=== PATIENT | female | born 1935 | race Two or more races ===

== ENCOUNTER 2017-04-30 23:14 | Inpatient (IN) | payer SELFPAY ==
[~2017-04-30] VITALS: Ht 152.4 cm; Wt 72.4 kg
[2017-05-01] MEDS ORDERED: SODIUM CHLORIDE FLUSH 10ML SYR IVF ONE
[2017-05-01] MEDS ORDERED: SODIUM CHLORIDE 0.9% 1,000ML IVBOLUS ONE
[2017-05-01] MEDS ORDERED: ONDANSETRON 2MG/ML, 2ML IVPush ONE
[2017-05-01] MEDS ORDERED: ONDANSETRON 2MG/ML, 2ML ONE (00:01)
[2017-05-01 00:20] LABS: ASPARTATE AMINO TRANSFERASE 214 U/L (15-37); BLOOD UREA NITROGEN 9 mg/dL (7-18)
[2017-05-01 00:45] LABS: PATH.CAST-FLAG NOT PRESENT; SPERM-FLAG NOT PRESENT; SRC-FLAG NOT PRESENT; XTAL-FLAG NOT PRESENT; YLC-FLAG NOT PRESENT
[2017-05-01 00:49] LABS: HEMATOCRIT 42.6 % (34.6-47.8); HEMOGLOBIN 14.2 g/dL (11.7-16.4); WHITE BLOOD COUNT 8.2 x10^3/uL (3.4-10)
[2017-05-01 01:18] LABS: IS PT STATUS REG ER OR PRE ER? YES
[2017-05-01] MEDS ORDERED: CEFTRIAXONE PMX 1GM/50ML 50 ML IV ONE (02:00)
[2017-05-01] MEDS ORDERED: OMNIPAQUE 350 MG/ML, 100ML BOTTLE ONE (02:14)
[2017-05-01] MEDS ORDERED: CEFTRIAXONE PMX 1GM/50ML 50 ML ONE (02:20)
[2017-05-01] MEDS ORDERED: ENOXAPARIN 40 MG/0.4 ML SQ SCH (02:30)
[2017-05-01] MEDS ORDERED: hydrALAzine 20 MG/ML, 1ML IVPush PRN (02:30)
[2017-05-01] MEDS ORDERED: ONDANSETRON 2MG/ML, 2ML IVPush PRN (02:30)
[2017-05-01] MEDS ORDERED: HYDROmorphone 2 MG/ML, 1ML IVPush PRN (02:30)
[2017-05-01] MEDS ORDERED: HALOPERIDOL 1 MG TABLET PO PRN (02:30)
[2017-05-01] MEDS ORDERED: POTASSIUM CHLORIDE 20 MEQ TAB.ER.PRT PO ONE (03:00)
[2017-05-01 03:27] VITALS: BP 103/61
[2017-05-01 03:30] VITALS: BP 103/61
[2017-05-01] MEDS: SODIUM CHLORIDE 0.9% 1,000 ML IV SCH ×2 (04:15→22:19)
[2017-05-01] MEDS: CEFOXITIN 2 GM in SODIUM CHLORIDE 0.9% 50 ML IV SCH ×2 (05:13→12:22)
[2017-05-01 08:12] VITALS: BP 70/39
[2017-05-01] MEDS: PANTOPRAZOLE 40 MG IV IVPush SCH (08:24)
[2017-05-01] MEDS: INSULIN ASPART 100 UNITS/ML, PEN SQ-INSULIN SCH ×4 (08:25→21:00)
[2017-05-01 08:32] VITALS: BP_SYST 94; BP_DIAS 57; BP_DIAS 85
[2017-05-01 10:02] LABS: BLOOD UREA NITROGEN 9 mg/dL (7-18); WHITE BLOOD COUNT 7.5 x10^3/uL (3.4-10)
[2017-05-01 10:05] LABS: ASPARTATE AMINO TRANSFERASE 136 U/L (15-37)
[2017-05-01 14:36] VITALS: BP_SYST 156; BP_SYST 56; BP_DIAS 39; BP_DIAS 69
[2017-05-01] MEDS: ENOXAPARIN 40 MG/0.4 ML SQ SCH ×2 (16:00→16:32)
[2017-05-01 20:01] VITALS: BP 94/49
[2017-05-01] MEDS: SODIUM CHLORIDE 0.9% IV SCH (20:06)
[2017-05-01] MEDS: CEFOXITIN IV SCH (20:06)
[2017-05-02] MEDS: SODIUM CHLORIDE 0.9% IV SCH ×3 (04:04→22:02)
[2017-05-02] MEDS: CEFOXITIN IV SCH ×3 (04:04→22:02)
[2017-05-02 04:07] VITALS: BP 100/61
[2017-05-02 05:07] LABS: HEMATOCRIT 38.4 % (34.6-47.8); HEMOGLOBIN 12.6 g/dL (11.7-16.4); WHITE BLOOD COUNT 5.5 x10^3/uL (3.4-10)
[2017-05-02 05:08] LABS: BLOOD UREA NITROGEN 12 mg/dL (7-18)
[2017-05-02 05:21] LABS: ASPARTATE AMINO TRANSFERASE 88 U/L (15-37)
[2017-05-02] MEDS: INSULIN ASPART 100 UNITS/ML, PEN SQ-INSULIN SCH ×4 (07:00→22:02)
[2017-05-02 07:15] VITALS: BP 96/54
[2017-05-02] MEDS: PANTOPRAZOLE 40 MG IV IVPush SCH (10:11)
[2017-05-02] MEDS: SODIUM CHLORIDE 0.9% 1,000 ML IV SCH ×2 (10:19→23:40)
[2017-05-02 13:42] VITALS: BP 101/63
[2017-05-02 22:06] VITALS: BP 93/58
[2017-05-02] MEDS ORDERED: ONDANSETRON 2MG/ML, 2ML IVPush PRN (22:30)
[2017-05-02] MEDS ORDERED: HALOPERIDOL 1 MG TABLET PO PRN (22:30)
[2017-05-03 03:34] VITALS: BP 101/62
[2017-05-03 05:21] LABS: HEMATOCRIT 36.1 % (34.6-47.8); HEMOGLOBIN 11.9 g/dL (11.7-16.4); WHITE BLOOD COUNT 4.9 x10^3/uL (3.4-10)
[2017-05-03 05:52] LABS: BLOOD UREA NITROGEN 9 mg/dL (7-18)
[2017-05-03] MEDS: SODIUM CHLORIDE 0.9% IV SCH (06:19)
[2017-05-03] MEDS: CEFOXITIN IV SCH (06:19)
[2017-05-03 06:55] VITALS: BP 114/67
[2017-05-03] MEDS: INSULIN ASPART 100 UNITS/ML, PEN SQ-INSULIN SCH ×4 (07:00→20:35)
[2017-05-03] MEDS: PANTOPRAZOLE 40 MG IV IVPush SCH (10:13)
[2017-05-03] MEDS: SODIUM CHLORIDE 0.9% 1,000 ML IV SCH ×2 (13:00→16:30)
[2017-05-03 13:11] LABS: HEMATOCRIT 38.5 % (34.6-47.8); HEMOGLOBIN 12.6 g/dL (11.7-16.4)
[2017-05-03] MEDS ORDERED: LIDOCAINE-MPF 2% ,5ML ONE ×2 (13:18)
[2017-05-03] MEDS ORDERED: PROPOFOL 10 MG/ML, 20ML ONE (13:18)
[2017-05-03] MEDS ORDERED: ONDANSETRON 2MG/ML, 2ML ONE (13:18)
[2017-05-03] MEDS ORDERED: DEXAMETHASONE 4 MG/ML, 1ML ONE (13:18)
[2017-05-03] MEDS ORDERED: MIDAZOLAM 1 MG/ML, 2ML ONE (13:22)
[2017-05-03] MEDS ORDERED: FENTANYL PF 100 MCG/2ML ONE (13:23)
[2017-05-03 13:40] VITALS: BP 109/55
[2017-05-03] MEDS ORDERED: SUCCINYLCHOLINE 20 MG/ML, 10ML ONE (14:25)
[2017-05-03] MEDS ORDERED: ROCURONIUM 10 MG/ML ONE (14:25)
[2017-05-03 16:20] VITALS: BP 109/61
[2017-05-03] MEDS: LEVOFLOXACIN/PMX 750MG/150ML 150 ML IV SCH (16:25)
[2017-05-03 20:14] VITALS: BP 110/64
[2017-05-04 01:30] VITALS: BP 104/58
[2017-05-04 05:03] LABS: HEMATOCRIT 35.6 % (34.6-47.8); HEMOGLOBIN 11.7 g/dL (11.7-16.4); WHITE BLOOD COUNT 3.3 x10^3/uL (3.4-10)
[2017-05-04 05:16] LABS: BLOOD UREA NITROGEN 11 mg/dL (7-18)
[2017-05-04 06:58] VITALS: BP 100/66
[2017-05-04] MEDS: INSULIN ASPART 100 UNITS/ML, PEN SQ-INSULIN SCH ×4 (07:00→21:00)
[2017-05-04] MEDS: PANTOPRAZOLE 40 MG IV IVPush SCH (08:15)
[2017-05-04] MEDS: SODIUM CHLORIDE 0.9% 1,000 ML IV SCH (08:19)
[2017-05-04 12:37] VITALS: BP 100/57
[2017-05-04] MEDS: LEVOFLOXACIN/PMX 750MG/150ML 150 ML IV SCH (16:37)
[2017-05-04 19:42] VITALS: BP 102/64
[2017-05-05] MEDS: SODIUM CHLORIDE 0.9% 1,000 ML IV SCH ×2 (00:17→12:30)
[2017-05-05 01:17] VITALS: BP 97/62
[2017-05-05 05:49] LABS: BLOOD UREA NITROGEN 9 mg/dL (7-18)
[2017-05-05 06:15] LABS: HEMATOCRIT 36.2 % (34.6-47.8); HEMOGLOBIN 11.9 g/dL (11.7-16.4); WHITE BLOOD COUNT 3.8 x10^3/uL (3.4-10)
[2017-05-05 06:16] LABS: DIFF TOTAL CELLS COUNTED 100 CELL DIFF
[2017-05-05 06:18] LABS: VERIFY COUNTS? YES
[2017-05-05 06:19] LABS: ANISOCYTOSIS 1+
[2017-05-05 06:20] LABS: LARGE PLATELETS 1+
[2017-05-05] MEDS: INSULIN ASPART 100 UNITS/ML, PEN SQ-INSULIN SCH ×4 (07:00→21:00)
[2017-05-05 07:16] VITALS: BP 92/52
[2017-05-05] MEDS: PANTOPRAZOLE 40 MG IV IVPush SCH (08:14)
[2017-05-05 13:07] LABS: BLOOD UREA NITROGEN 8 mg/dL (7-18)
[2017-05-05 13:29] VITALS: BP 112/65
[2017-05-05] MEDS: LEVOFLOXACIN/PMX 750MG/150ML 150 ML IV SCH (16:12)
[2017-05-05 18:32] VITALS: BP 102/60
[2017-05-06] MEDS: SODIUM CHLORIDE 0.9% 1,000 ML IV SCH ×2 (02:49→21:00)
[2017-05-06 03:00] VITALS: BP 101/52
[2017-05-06 05:25] LABS: BLOOD UREA NITROGEN 6 mg/dL (7-18)
[2017-05-06 05:29] LABS: HEMATOCRIT 37.2 % (34.6-47.8); HEMOGLOBIN 12.2 g/dL (11.7-16.4); WHITE BLOOD COUNT 3.9 x10^3/uL (3.4-10)
[2017-05-06] MEDS: INSULIN ASPART 100 UNITS/ML, PEN SQ-INSULIN SCH ×4 (07:00→21:00)
[2017-05-06 07:48] VITALS: BP 104/59
[2017-05-06] MEDS: PANTOPRAZOLE 40 MG IV IVPush SCH (09:16)
[2017-05-06 12:01] VITALS: BP 118/58
[2017-05-06] MEDS ORDERED: BUPIVACAINE/PF 0.5% ONE (14:10)
[2017-05-06] MEDS ORDERED: FENTANYL PF 100 MCG/2ML ONE ×2 (15:32→16:54)
[2017-05-06] MEDS ORDERED: NEOSTIGMINE 1 MG/ML, 10ML ONE (15:44)
[2017-05-06] MEDS ORDERED: GLYCOPYRROLATE 0.2MG/1ML, 5ML ONE (15:44)
[2017-05-06] MEDS ORDERED: ROCURONIUM 10 MG/ML ONE (15:44)
[2017-05-06] MEDS ORDERED: OXYcodone 5 MG/5 ML ORAL.SOL UDC PO PRN (16:30)
[2017-05-06] MEDS ORDERED: HYDROmorphone 1 MG/ML, 1ML IV PRN (16:30)
[2017-05-06] MEDS ORDERED: PROMETHAZINE 25 MG/ML, 1ML IV PRN (16:30)
[2017-05-06] MEDS ORDERED: hydrALAzine 20 MG/ML, 1ML IV PRN (16:30)
[2017-05-06] MEDS ORDERED: DIAZEPAM 5 MG/ML, 2ML IVPush PRN (16:30)
[2017-05-06] MEDS ORDERED: ONDANSETRON 2MG/ML, 2ML IVPush PRN (16:30)
[2017-05-06] MEDS ORDERED: LABETALOL 5MG/ML, 20ML IV PRN (16:30)
[2017-05-06] MEDS ORDERED: OXYcodone 5 MG/5 ML ORAL.SOL UDC ONE (16:55)
[2017-05-06] MEDS: FENTANYL PF 100 MCG/2ML IV PRN ×3 (17:00→17:18)
[2017-05-06] MEDS ORDERED: HYDROmorphone 1 MG/ML, 1ML ONE (17:02)
[2017-05-06] MEDS: LEVOFLOXACIN/PMX 750MG/150ML 150 ML IV SCH (18:16)
[2017-05-06] MEDS: OXYcodone IR 5MG TABLET PO PRN (18:51)
[2017-05-06 19:02] VITALS: BP 116/61
[2017-05-07 01:50] VITALS: BP 117/63
[2017-05-07] MEDS: OXYcodone IR 5MG TABLET PO PRN ×2 (04:49→17:07)
[2017-05-07 05:58] LABS: BLOOD UREA NITROGEN 5 mg/dL (7-18)
[2017-05-07 06:26] LABS: HEMATOCRIT 39.2 % (34.6-47.8)
[2017-05-07] MEDS: INSULIN ASPART 100 UNITS/ML, PEN SQ-INSULIN SCH ×4 (07:00→21:00)
[2017-05-07 07:38] VITALS: BP 103/61
[2017-05-07] MEDS: metFORMIN 500 MG TABLET PO SCH (10:25)
[2017-05-07] MEDS: PANTOPRAZOLE 40 MG IV IVPush SCH (10:26)
[2017-05-07] MEDS: HYDROmorphone 2 MG/ML, 1ML IVPush PRN ×2 (10:59→21:42)
[2017-05-07 13:07] VITALS: BP 100/62
[2017-05-07 18:46] VITALS: BP 107/59
[2017-05-08 05:41] LABS: HEMATOCRIT 38.9 % (34.6-47.8); HEMOGLOBIN 13.2 g/dL (11.7-16.4); WHITE BLOOD COUNT 6.5 x10^3/uL (3.4-10)
[2017-05-08 05:47] LABS: BLOOD UREA NITROGEN 3 mg/dL (7-18)
[2017-05-08 05:57] VITALS: BP 119/67
[2017-05-08] MEDS: OXYcodone IR 5MG TABLET PO PRN ×2 (06:26→12:31)
[2017-05-08] MEDS ORDERED: POTASSIUM CHLORIDE 20 MEQ TAB.ER.PRT PO ONE ×2 (07:30→09:00)
[2017-05-08] MEDS ORDERED: PANTOPROZOLE 40MG TABLET PO SCH (07:30)
[2017-05-08 08:52] VITALS: BP 113/65
[2017-05-08] MEDS: INSULIN ASPART 100 UNITS/ML, PEN SQ-INSULIN SCH ×3 (09:56→16:00)
[2017-05-08] MEDS: metFORMIN 500 MG TABLET PO SCH (10:00)
[2017-05-08] MEDS ORDERED: PNEUMOCOCCAL 23 VACCINE IM-VACC ONE ×2 (13:00→15:30)
[2017-05-08] MEDS ORDERED: FLU VACC QS2017-18 (36MOS+) UP/PF 0.5 ML IM-VACC ONE ×2 (13:00→15:30)
[2017-05-08 14:00] VITALS: BP 120/81
[2017-05-08 16:32] VITALS: BP 111/69
[2017-05-08 16:34] VITALS: BP 111/69
== END 2017-05-08 20:00 | disposition home or self-care (01) | DRG 853 ==
LOC: ED 23:59 → EDIP 05-01 02:28 → 3NE 05-01 03:20
PROVIDERS: ADMIT Internal Medicine; ATTEND Internal Medicine
PROC: 30233R1 Transfusion of Nonautologous Platelets into Peripheral Vein, Percutaneous Approach (ICD-10-PCS; 2017-05-03)
PROC: 0F798ZZ Dilation of Common Bile Duct, Via Natural or Artificial Opening Endoscopic (ICD-10-PCS; 2017-05-03)
PROC: 0FT44ZZ Resection of Gallbladder, Percutaneous Endoscopic Approach (ICD-10-PCS; 2017-05-06)
PROC: 3E0234Z Introduction of Serum, Toxoid and Vaccine into Muscle, Percutaneous Approach (ICD-10-PCS; principal; 2017-05-08)
DX: A41.9 Sepsis, unspecified organism (principal); J96.01 Acute respiratory failure with hypoxia; K80.63 Calculus of gallbladder and bile duct with acute cholecystitis with obstruction; E11.65 Type 2 diabetes mellitus with hyperglycemia; I50.30 Unspecified diastolic (congestive) heart failure; D69.59 Other secondary thrombocytopenia; E87.1 Hypo-osmolality and hyponatremia; N39.0 Urinary tract infection, site not specified; Z23 Encounter for immunization; D72.810 Lymphocytopenia; E87.6 Hypokalemia; Z87.891 Personal history of nicotine dependence; R16.0 Hepatomegaly, not elsewhere classified; R74.0 Nonspecific elevation of levels of transaminase and lactic acid dehydrogenase [LDH]; R74.8 Abnormal levels of other serum enzymes; Z90.49 Acquired absence of other specified parts of digestive tract; D69.6 Thrombocytopenia, unspecified
CPT/HCPCS: 36415; 71010; 71275; 74177; 74181; 74328; 80048; 80053; 81001; 82105; 82542; 82607; 82746; 82962; 83036; 83605; 83690; 83735; 83880; 84100; 84443; 84484; 85025; 85610; 85730; 86850; 86900; 87040; 87086; 88112; 88304; 88305; 90686; 90732; 93306; 96361; 96365; 96375; J0696; J1100; J1170; J1650; J1815; J1956; J2250; J2405; J2704; J2710; J3010; J3490; Q9967; C1769; C9113; J0330; J0694; J7030; P9035